=== PATIENT | male | born 1995 | race Caucasian/White ===

== ENCOUNTER 2018-05-02 09:22 | Emergency (ER) | payer BC, OTHER ==
[~2018-05-02] VITALS: Ht 170.2 cm; Wt 90.8 kg
[2018-05-02 09:42] VITALS: TEMP 36.6; Ht 170.2 cm; Wt 90.8 kg
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
[2018-05-02] MEDS ORDERED: ACETAMINOPHEN 500 MG TAB PO STA (11:29)
--- NOTE | 2018-05-02 11:33 | DIAGNOSTIC IMAGING REPORT ---
RIGHT HUMERUS 2 VIEWS CLINICAL HISTORY: Right arm pain. FINDINGS: AP and lateral views of the right humerus are obtained. No prior studies are available for comparison at the time of dictation. The skeletal structures are well mineralized. There is no radiographic evidence of right humeral fracture. The right shoulder and elbow joints appear maintained. The overlying soft tissues are within normal limits. IMPRESSION: Unremarkable radiographic assessment of the right humerus. Electronically signed by: Aston Gil M.D. 05/02/2018 11:31 AM Dictated Date/Time: 05/02/2018 11:31 AM
[2018-05-02 11:50] VITALS: BP 133/85; PULSE 79; O2SAT 99
== END 2018-05-02 12:09 | disposition home or self-care (01) ==
LOC: EDBD 09:22 → C.EDC 09:23
DX: M79.601 Pain in right arm (principal); V47.5XXA Car driver injured in collision with fixed or stationary object in traffic accident, initial encounter; Z98.2 Presence of cerebrospinal fluid drainage device